=== PATIENT | female | born 1995 | race Caucasian/White ===

== ENCOUNTER 2016-07-29 20:04 | Emergency (ER) | payer BC ==
[~2016-07-29] VITALS: Ht 165.1 cm; Wt 59.1 kg
[2016-07-29 20:08] VITALS: Ht 165.1 cm; Wt 59.1 kg
[2016-07-29] MEDS ORDERED: METHYLPREDNISOLONE 125 MG VIAL IV STA (20:46)
[2016-07-29] MEDS ORDERED: FAMOTIDINE 20MG/102 ML D5W IV STA (20:46)
[2016-07-29] MEDS ORDERED: BCPILLS PO (20:46)
[2016-07-29] MEDS ORDERED: IBUP-103 PO (20:46)
[2016-07-29] MEDS ORDERED: DiphenhydrAMINE HCL 50 MG/ML VIAL IV STA (20:46)
[2016-07-29] MEDS ORDERED: [UNRECOGNIZED DRUG - CODE] PO (20:48)
[2016-07-29 21:18] LABS: BASO % 0.1 %; BASO ABS # 0.01 K/uL (0-0.2); COMPLETE YES; EOS % 0.8 %; HEMATOCRIT 46.4 % (37-47); IG% 0.1 %; LYMPH % 26.4 %; LYMPH ABS # 1.92 K/uL (1.2-3.4); MEAN CELL VOLUME 82.3 fL (80-100); MEAN CORPUSCULAR HEMOGLOBIN 28.7 pg (25-34); MEAN CORPUSCULAR HGB CONC 34.9 g/dl (32-36); MEAN PLATELET VOLUME 9.8 fL (7.4-10.4); MONO % 5.1 %; NEUT % 67.5 %; PLATELET COUNT 174 K/uL (130-400); RED BLOOD COUNT 5.64 M/uL (4.2-5.4); WHITE BLOOD COUNT 7.26 K/uL (4.8-10.8)
[2016-07-29 21:29] LABS: INR 0.9 (0.9-1.1)
[2016-07-29 21:37] VITALS: O2SAT 96
[2016-07-29 21:40] LABS: CALCIUM 9.5 mg/dl (8.5-10.1); CREATININE 0.66 mg/dl (0.60-1.20); POTASSIUM 3.8 mmol/L (3.5-5.1)
[2016-07-29 21:46] LABS: PREG INTERNAL NEGATIVE QC NEG CLEAR BACKGROUND; PREG INTERNAL POSITIVE QC POS CONTROL LINE
[2016-07-29] MEDS ORDERED: OPTIRAY 320 IV PRN (22:00)
--- NOTE | 2016-07-29 22:45 | DIAGNOSTIC IMAGING REPORT ---
CT ANGIOGRAPHY OF THE CHEST, PULMONARY EMBOLUS PROTOCOL CLINICAL HISTORY: Having an allergic reaction. COMPARISON STUDY: No previous studies for comparison. TECHNIQUE: Following IV administration of 73 mL of Optiray-320, helical axial images of the chest were obtained utilizing the pulmonary embolus protocol. Maximal intensity projections and sagittal and coronal reformats were viewed on an independent 3D workstation. IV contrast was administered without complication. CT DOSE: 181.88 mGy.cm FINDINGS: This exam is compromised by motion artifact. No central or lobar pulmonary emboli are identified. The segmental and subsegmental vessels are suboptimally assessed due to respiratory motion. There is pectus excavatum deformity. Cardiac size is at the upper limits of normal. There is no evidence of thoracic aortic dissection. No pericardial effusion is present. There is no pneumothorax or pleural effusion. No consolidation to suggest pneumonia is present. Mild groundglass opacities suggest atelectasis. The upper abdomen is unremarkable. IMPRESSION: 1. No central or lobar pulmonary emboli. The segmental and subsegmental pulmonary arteries are suboptimally assessed due to respiratory motion. 2. No acute intrathoracic findings. Electronically signed by: Steve Gilmore M.D. 07/29/2016 10:43 PM Dictated Date/Time: 07/29/2016 10:35 PM
--- NOTE | 2016-07-29 22:46 | DIAGNOSTIC IMAGING REPORT ---
CHEST 2 VIEWS ROUTINE CLINICAL HISTORY: Allergic reaction. Chest tightness. COMPARISON STUDY: Chest CT performed earlier today. FINDINGS: Mild S-shaped curvature of the thoracolumbar spine is noted. There is suspected excavatum deformity. There is no pneumothorax or pleural effusion. The right heart border is obscured due to the pectus excavatum deformity. IMPRESSION: 1. No acute cardiopulmonary findings. 2. Mild S-shaped scoliosis of the thoracolumbar spine. 3. Pectus excavatum deformity. Electronically signed by: Steve Gilmore M.D. 07/29/2016 10:44 PM Dictated Date/Time: 07/29/2016 10:44 PM
[2016-07-29] MEDS ORDERED: EPP3/2 IM (23:00)
[2016-07-29] MEDS ORDERED: PRED20TA PO (23:00)
[2016-07-29 23:16] VITALS: BP 128/88; PULSE 67; TEMP 36.9; O2SAT 99
--- NOTE | 2016-07-30 00:32 | EMERGENCY ROOM VISIT NOTE ---
History Report prepared by Kaykay: Maureen Crisostomo Under the Supervision of: Dr. Howard Salmon M.D. First contact with patient: 20:39 Chief Complaint: ALLERGIC REACTION Stated Complaint: HAVING AN ALLERGIC REACTION Nursing Triage Summary: Triage Notes: Patient states "I have been getting allergic reactions since last night. I have hives everywhere. My hands and feet are really swollen and my joints and lips are burning. I have had a lot of trouble breathing today. I have felt like I am going to pass out. I had a headahce and body aches. I have been taking a lot of allergy medications but nothing is helping." History of Present Illness The patient is a 21 year old female who presents to the Emergency Room with complaints of worsening allergic reaction symptoms beginning last night. The patient states that she is unsure what is causing the allergic reaction. her symptoms consist of swelling and hives to her lips, hands and feet. The patient notes that a few hours ago she began to experience trouble breathing but that has since resolved. She is also was experiencing a chest flutter sensation and lightheadedness that has since turned into chest pain. The patient notes that around 4pm today she took Chlorpheniramine Maleate but has not seen improvements of her symptoms. She also notes that she did have a cold that ended yesterday before the hives began. The patient states that she has no new soaps, detergents, or cosmetics. She is unsure of food changes to her diet but notes that she has a family history of nut allergy. She denies known allergies, chance of , clot history, or smoking. She is on control. Source of History: patient Onset: last night Position: other (global) Symptom Intensity: moderate Quality: other (allergic reaction) Timing: worsening Associated Symptoms: + chest pain Note: The patient is experiencing hives and swelling to feet and hands. Review of Systems See HPI for pertinent positives & negatives. A total of 10 systems reviewed and were otherwise negative. Past Medical & Surgical Medical Problems: (1) No Known Active Medical Problems Family History Fx: Nut Allergy Social History Smoking Status: Never Smoker Alcohol Use: none Marital Status: single Housing Status: lives with roommate Occupation Status: [employer] student Current/Historical Medications Scheduled Control Pills ( Control Pills), 1 TAB PO DAILY Chlorpheniramine-Phenylephrine (Allergy Multi-Symptom), 1 TAB PO BID Epinephrine (Epipen), 0.3 MG IM UD Ibuprofen Tab (Advil), 400 MG PO PRN UD Prednisone (Prednisone), 3 TAB PO DAILY Allergies Coded Allergies: No Known Allergies (Unverified , 07/29/16) Physical Exam Vital Signs Date Time Temp Pulse Resp B/P Pulse Ox O2 Delivery O2 Flow Rate FiO2 07/29/16 23:16 36.9 67 18 128/88 99 07/29/16 23:15 67 18 128/88 99 Room Air 07/29/16 22:44 66 18 126/89 99 Room Air 07/29/16 21:51 68 18 133/83 99 Room Air 07/29/16 21:37 96 Room Air 07/29/16 20:14 96 Room Air 07/29/16 20:08 36.9 70 18 141/92 96 Room Air Physical Exam Constitutional: Vital signs reviewed. Eyes: Pupils are equal round reactive to light. Conjunctiva are noninjected. ENT: Pharynx is clear without erythema or exudate. Mucous membranes are moist. Neck supple without meningeal signs. No swelling to tongue or throat. Respiratory: Clear to auscultation bilaterally. Breath sounds are equal bilaterally. No wheezing or stridor. Cardiovascular: Regular rate and rhythm. No rubs or gallops. GI: Soft, nondistended and nontender. Bowel sounds are present. Musculoskeletal: Slight swelling to the fingers. No lower extremity tenderness. Integumentary: Diffuse urticaria to trunk and face. Neurological: The patient is awake and alert. No focal deficits. Psychiatric: Normal affect. Medical Decision & Procedures ER Provider Diagnostic Interpretation: Other radiology results as stated below per my review and the radiologist's interpretation: CHEST 2 VIEWS ROUTINE CLINICAL HISTORY: Allergic reaction. Chest tightness. COMPARISON STUDY: Chest CT performed earlier today. FINDINGS: Mild S-shaped curvature of the thoracolumbar spine is noted. There is suspected excavatum deformity. There is no pneumothorax or pleural effusion. The right heart border is obscured due to the pectus excavatum deformity. IMPRESSION: 1. No acute cardiopulmonary findings. 2. Mild S-shaped scoliosis of the thoracolumbar spine. 3. Pectus excavatum deformity. Electronically signed by: Steve Gilmore M.D. 07/29/2016 10:44 PM Dictated Date/Time: 07/29/2016 10:[address] ANGIOGRAPHY OF THE CHEST, PULMONARY EMBOLUS PROTOCOL CLINICAL HISTORY: Having an allergic reaction. COMPARISON STUDY: No previous studies for comparison. TECHNIQUE: Following IV administration of 73 mL of Optiray-320, helical axial images of the chest were obtained utilizing the pulmonary embolus protocol. Maximal intensity projections and sagittal and coronal reformats were viewed on an independent 3D workstation. IV contrast was administered without complication. CT DOSE: 181.88 mGy.cm FINDINGS: This exam is compromised by motion artifact. No central or lobar pulmonary emboli are identified. The segmental and subsegmental vessels are suboptimally assessed due to respiratory motion. There is pectus excavatum deformity. Cardiac size is at the upper limits of normal. There is no evidence of thoracic aortic dissection. No pericardial effusion is present. There is no pneumothorax or pleural effusion. No consolidation to suggest pneumonia is present. Mild groundglass opacities suggest atelectasis. The upper abdomen is unremarkable. IMPRESSION: 1. No central or lobar pulmonary emboli. The segmental and subsegmental pulmonary arteries are suboptimally assessed due to respiratory motion. 2. No acute intrathoracic findings. Electronically signed by: Steve Gilmore M.D. 07/29/2016 10:43 PM Dictated Date/Time: 07/29/2016 10:35 PM Laboratory Results 07/29/16 21:12 Red Blood Count 5.64, Mean Corpuscular Volume 82.3, Mean Corpuscular Hemoglobin 28.7, Mean Corpuscular Hemoglobin Concent 34.9, Mean Platelet Volume 9.8, Neutrophils (%) (Auto) 67.5, Lymphocytes (%) (Auto) 26.4, Monocytes (%) (Auto) 5.1, Eosinophils (%) (Auto) 0.8, Basophils (%) (Auto) 0.1, Neutrophils # (Auto) 4.89, Lymphocytes # (Auto) 1.92, Monocytes # (Auto) 0.37, Eosinophils # (Auto) 0.06, Basophils # (Auto) 0.01 07/29/16 21:12 Test 07/29/16 21:12 07/29/16 21:14 White Blood Count 7.26 K/uL (4.8-10.8) Red Blood Count 5.64 M/uL (4.2-5.4) Hemoglobin 16.2 g/dL (12.0-16.0) Hematocrit 46.4 % (37-47) Mean Corpuscular Volume 82.3 fL (80-100) Mean Corpuscular Hemoglobin 28.7 pg (25-34) Mean Corpuscular Hemoglobin Concent 34.9 g/dl (32-36) Platelet Count 174 K/uL (130-400) Mean Platelet Volume 9.8 fL (7.4-10.4) Neutrophils (%) (Auto) 67.5 % Lymphocytes (%) (Auto) 26.4 % Monocytes (%) (Auto) 5.1 % Eosinophils (%) (Auto) 0.8 % Basophils (%) (Auto) 0.1 % Neutrophils # (Auto) 4.89 K/uL (1.4-6.5) Lymphocytes # (Auto) 1.92 K/uL (1.2-3.4) Monocytes # (Auto) 0.37 K/uL (0.11-0.59) Eosinophils # (Auto) 0.06 K/uL (0-0.5) Basophils # (Auto) 0.01 K/uL (0-0.2) RDW Standard Deviation 44.5 fL (36.4-46.3) RDW Coefficient of Variation 14.7 % (11.5-14.5) Immature Granulocyte % (Auto) 0.1 % Immature Granulocyte # (Auto) 0.01 K/uL (0.00-0.02) Prothrombin Time 10.0 SECONDS (9.0-12.0) Prothromb Time International Ratio 0.9 (0.9-1.1) Activated Partial Thromboplast Time 26.5 SECONDS (21.0-31.0) Partial Thromboplastin Ratio 1.0 Anion Gap 11.0 mmol/L (3-11) Est Creatinine Clear Calc Drug Dose 122.3 ml/min Estimated GFR () 147.4 Estimated GFR (Non- 127.2 BUN/Creatinine Ratio 17.0 (10-20) Calcium Level 9.5 mg/dl (8.5-10.1) Human Chorionic Gonadotropin, Qual NEG (NEG) Bedside D-Dimer > 450 ng/mlFEU (0-450) Bedside Troponin I 0.000 ng/ml (0-0.045) Laboratory results as reviewed by me. Medications Administered Medications (Trade) Dose Ordered Sig/Griffin Route Start Time Stop Time Status Last Admin Dose Admin Methylprednisolone Sodium Succinate (Solu-Medrol IV) 125 mg NOW STAT IV 07/29/16 20:46 07/29/16 20:48 DC 07/29/16 21:44 125 MG Diphenhydramine HCl (Benadryl Inj) 25 mg NOW STAT IV 07/29/16 20:46 07/29/16 20:48 DC 07/29/16 21:44 25 MG Famotidine (Pepcid 20mg/100 ml) 20 mg ONE STAT IV 07/29/16 20:46 07/29/16 20:48 DC 07/29/16 21:44 20 MG ECG Indication: chest pain Rate (beats per minute): 80 Rhythm: sinus rhythm Findings: T-wave inversion (lead 3), no ectopy ED Course 2043: The patient was evaluated in room B10. A complete history and physical exam was performed. 2045: Pepcid 20mg/ 100 ml 20 mg IV, Benadryl Inj 25 mg IV, Solu-Medrol IV 125 mg IV. 2151: The patient is feeling better now. Her lips are less swollen. I discussed her elevated D Dimer. She agreed to CT scan. 2251: I discussed her test results with her. She is feeling better and denies chest pain at this time. I reviewed indications for an Epi-Pen. 2304: Upon reevaluation, the patient appeared to have improvement of her symptoms. I discussed tonight's findings with her. She verbalized agreement of the treatment plan. She was discharged home. Medical Decision This is a 21-year-old female who presents with chest pain and hives. Differential diagnosis includes pulmonary embolism, pleurisy, pneumonia, anxiety , allergic reaction. I did perform a limited focused review of portions of the patient's old chart on the electronic medical record. The patient has had no prior visits to this hospital. I did evaluate the patient as noted above. The patient is presenting with hives and has an allergic reaction to an unknown substance. She does state she has a family history of nut allergy but has had no problems with nuts in the past. She also complains of chest pain and does take oral contraceptives. IV access was established. The patient was placed on a continuous athletic monitor. I did treat the patient with IV Benadryl, Pepcid and Solu-Medrol. I did order and personally review the patient's 12-lead EKG as described above. I did order and review the patient's blood work as noted in the electronic medical record. Troponin is negative. D-dimer is elevated. After discussion with the patient I did order a CT of the chest. I did review the images myself as well as the radiology report as described above. There is no evidence of pulmonary embolism although the study was slightly limited due to respiratory motion artifact. I did reassess the patient. She states her chest pain is now completely resolved. She is feeling much better hives are improved as well. Although the CT scan was not optimal I did feel PE was less likely given she has no symptoms at this time. I did give the patient a prescription for EpiPen and in his own. She'll continue Benadryl at home. She was given instructions on when to use the EpiPen. She will follow with [facility] and an technical sales support specialist for further evaluation. She was given return instructions as outlined below. Impression Primary Impression: Acute allergic reaction Additional Impression: Acute chest pain Scribe Attestation The scribe's documentation has been prepared under my direct and personally reviewed by me in its entirety. I confirm that the note above accurately reflects all work, treatment, procedures, and medical decision making performed by me. Departure Information Dispostion Home / Self-Care Prescriptions Epinephrine (EPIPEN) 0.3 Mg/0.3 Ml Inj 0.3 MG IM UD, #1 BOX Prov: Howard Salmon M.D. 07/29/16 Prednisone (Prednisone) 20 Mg Tab 3 TAB PO DAILY, #12 TAB FOR 4 DAYS Prov: Howard Salmon M.D. 07/29/16 Forms HOME CARE DOCUMENTATION FORM, IMPORTANT VISIT INFORMATION Patient Instructions ED Allergic Reaction General Other, ED Chest Pain Atypical Unkn Cause, My [facility] Additional Instructions You have been examined and treated today on an emergency basis only. This is not a substitute for, or an effort to provide, complete comprehensive medical care. It is impossible to recognize and treat all injuries or illnesses in a single emergency department visit. It is therefore important that you follow up closely with [facility]. Call as soon as possible for an appointment. Return for worsening symptoms or if you develop swelling to your throat or tongue, difficulty breathing, lightheadedness or any other concerning symptoms. Problem Qualifiers
== END 2016-07-29 23:16 | disposition home or self-care (01) ==
LOC: C.EDB 20:07
DX: T78.40XA Allergy, unspecified, initial encounter (principal); R07.9 Chest pain, unspecified; X58.XXXA Exposure to other specified factors, initial encounter